=== PATIENT | female | born 1935 | race Caucasian/White ===

== ENCOUNTER → 2018-06-26 | Outpatient (CLI) | payer MEDICARE | LOC: GMAM 10:30 | PROVIDERS: ATTEND Family Medicine | DX: N39.0 Urinary tract infection, site not specified (principal) ==

== ENCOUNTER → 2018-11-04 | Outpatient (CLI) | payer MEDICARE | LOC: YCHH 09:07 | PROVIDERS: ATTEND Family Medicine | DX: M06.9 Rheumatoid arthritis, unspecified (principal); I10 Essential (primary) hypertension; E78.5 Hyperlipidemia, unspecified; R73.9 Hyperglycemia, unspecified ==

== ENCOUNTER → 2018-11-10 | Outpatient (CLI) | payer MEDICARE ==
--- NOTE | 2018-11-11 11:30 | US ---
EXAM DESCRIPTION: Soft Tissue,Extremity: ULTRASOUND. CLINICAL HISTORY: 83 years Female R22.31. Localized swelling, mass and lump, right upper limb. COMPARISON: None Available. TECHNIQUE: Transcutaneous scanning: Grigsby-scale and Doppler modes. FINDINGS: Scanning of the right biceps area and inferior shoulder. Typical appearance of subcutaneous adipose tissue and muscular tissue. No abnormal vascularity or abnormal vessels. No dominant solid mass or distinct cyst. No parenchymal edema or large calcifications. No overlying skin changes. IMPRESSION: Normal ultrasound of the right biceps area with no solid or cystic mass visualized. Consider follow-up ultrasound if palpable mass develops, increased pain or tenderness, or skin changes. Electronically signed by: Allen Birmingham MD 11/11/2018 11:27 AM [facility]
== END ==
LOC: US 13:28
PROVIDERS: ATTEND Family Medicine
DX: R22.31 Localized swelling, mass and lump, right upper limb (principal)

== ENCOUNTER → 2019-04-20 | Outpatient (CLI) | payer MEDICARE | LOC: YCHH 07:57 | PROVIDERS: ATTEND Family Medicine | DX: E11.9 Type 2 diabetes mellitus without complications (principal); M06.9 Rheumatoid arthritis, unspecified; I10 Essential (primary) hypertension; D64.9 Anemia, unspecified; E78.5 Hyperlipidemia, unspecified ==

== ENCOUNTER → 2019-04-20 | Outpatient (CLI) | payer MEDICARE | LOC: YCHH 10:36 | PROVIDERS: ATTEND Family Medicine | DX: E11.9 Type 2 diabetes mellitus without complications (principal) ==

== ENCOUNTER → 2020-03-03 | Outpatient (CLI) | payer MEDICARE | LOC: YCHH 08:42 | PROVIDERS: ATTEND Family Medicine | DX: R30.0 Dysuria (principal); R41.0 Disorientation, unspecified ==

== ENCOUNTER → 2020-03-06 | Outpatient (CLI) | payer MEDICARE | LOC: YCHH 16:39 | PROVIDERS: ATTEND Family Medicine | DX: R44.3 Hallucinations, unspecified (principal); D64.9 Anemia, unspecified; E03.9 Hypothyroidism, unspecified ==

== ENCOUNTER 2020-04-14 16:44 | Emergency (ER) | payer MEDICARE ==
[2020-04-14 17:46] VITALS: TEMP 97
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
[2020-04-14 18:56] VITALS: BP 178/102; O2SAT 96
== END 2020-04-14 18:57 ==
LOC: ER 16:44
DX: Z04.41 Encounter for examination and observation following alleged adult rape (principal); F99 Mental disorder, not otherwise specified; F22 Delusional disorders; R44.2 Other hallucinations; S01.332A Puncture wound without foreign body of left ear, initial encounter; I10 Essential (primary) hypertension; Z85.3 Personal history of malignant neoplasm of breast; Z79.01 Long term (current) use of anticoagulants; Z79.899 Other long term (current) drug therapy; Z88.6 Allergy status to analgesic agent; X58.XXXA Exposure to other specified factors, initial encounter; Y92.9 Unspecified place or not applicable

== ENCOUNTER → 2020-05-29 | Outpatient (CLI) | payer MEDICARE | LOC: YCHH 09:17 | PROVIDERS: ATTEND Family Medicine | DX: M06.9 Rheumatoid arthritis, unspecified (principal); R44.3 Hallucinations, unspecified; I10 Essential (primary) hypertension ==

== ENCOUNTER → 2020-06-07 | Outpatient (CLI) | payer MEDICARE | LOC: YCHH 08:42 | PROVIDERS: ATTEND Family Medicine | DX: I11.0 Hypertensive heart disease with heart failure (principal); I50.32 Chronic diastolic (congestive) heart failure; I25.10 Atherosclerotic heart disease of native coronary artery without angina pectoris ==

== ENCOUNTER → 2020-11-06 | Outpatient (CLI) | payer MEDICARE ==
--- NOTE | 2020-11-06 11:01 | RAD ---
4 radiographs right knee Indication: KNEE PAIN Comparison: None Impression: Valgus angulation with standing. Severe osteoarthritis lateral compartment with moderate to severe changes medial compartment and mild changes patellofemoral compartment. [id number] appearance lateral compartment with standing. Small knee effusion. No acute fracture. Electronically signed by: Andrew Patel MD 11/06/2020 10:59 AM [facility]
--- NOTE | 2020-11-06 11:08 | RAD ---
EXAM DESCRIPTION: Pelvis CLINICAL HISTORY: 85 years Female, HIP PAIN COMPARISON: None. Findings: One view(s)/radiograph(s) Left total hip arthroplasty. No hardware complication. Osteopenia. Scattered surgical material overlies right pelvis. Mild right hip osteoarthritis. No acute fracture or dislocation. No focal soft tissue swelling. IMPRESSION: No acute osseous abnormality identified. Electronically signed by: Gomez Oliveira MD 11/06/2020 11:06 AM [facility]
== END ==
LOC: RAD 09:15
PROVIDERS: ATTEND Orthopaedic Surgery
DX: M17.11 Unilateral primary osteoarthritis, right knee (principal); M21.061 Valgus deformity, not elsewhere classified, right knee; M25.461 Effusion, right knee; M25.551 Pain in right hip